=== PATIENT | female | born 1990 | race African-American/Black ===

== ENCOUNTER 2017-10-30 17:26 | Emergency (ER) | payer SELFPAY ==
[2017-10-30 17:36] VITALS: BP 111/69
--- NOTE | 2017-10-30 17:55 | ER Document Report ---
ED Extremity Problem, Lower - General Chief Complaint: Leg Swelling Stated Complaint: POSSIBLE INSECT BITE Time Seen by Provider: 10/30/17 17:49 Mode of Arrival: Ambulatory Information source: Patient Notes: 27-year-old female presented ED for complaint of pain and swelling to the right thigh. She states she was bit by an insect 2 days ago and she pinched the insect bite and got some clear fluid out of it. She states then later on she pensioned again and got some pus out of it. She states 1 of her friends told her she keeps squeezing at the lid plan so she squeezed it and squeezed it until it bled. Now it is inflamed red and infected. TRAVEL OUTSIDE OF THE [place] IN LAST 30 DAYS: No - HPI Patient complains to provider of: Pain, Swelling, Other - Abscess at site of previous insect bite Location: Thigh - Right thigh Occurred: Other - Saturday Where: Outdoors Onset/Duration: Gradual, Worse Quality of pain: Burning Severity: Moderate Pain Level: 3 Context: Other - Red swollen painful area to right thigh at site of insect bite Recent injury: No Associated symptoms: Other - Red swollen painful area at site of insect bite Exacerbated by: Movement, Walking Relieved by: Nothing - Related Data Allergies/Adverse Reactions: No Known Allergies Allergy (Unverified 10/30/17 17:31) Past Medical History - General Information source: Patient - Social History Smoking Status: Never Smoker Cigarette use (# per day): No Chew tobacco use (# tins/day): No Smoking Education Provided: No Frequency of alcohol use: None Drug Abuse: None Lives with: Family Family History: Reviewed & Not Pertinent Patient has suicidal ideation: No Patient has homicidal ideation: No - Past Medical History Cardiac Medical History: Reports: None Pulmonary Medical History: Reports: None EENT Medical History: Reports: None Neurological Medical History: Reports: None Endocrine Medical History: Reports: None Renal/ Medical History: Reports: None Malignancy Medical History: Reports: None GI Medical History: Reports: None Musculoskeletal Medical History: Reports None Skin Medical History: Reports None Psychiatric Medical History: Reports: None Traumatic Medical History: Reports: None Infectious Medical History: Reports: None Surgical Hx: Negative Past Surgical History: Reports: None - Immunizations Immunizations up to date: Yes Review of Systems - Review of Systems Constitutional: No symptoms reported EENT: No symptoms reported Cardiovascular: No symptoms reported Respiratory: No symptoms reported Gastrointestinal: No symptoms reported Genitourinary: No symptoms reported Female Genitourinary: No symptoms reported Musculoskeletal: No symptoms reported Skin: Other - Red swollen painful area to right thigh Hematologic/Lymphatic: No symptoms reported Neurological/Psychological: No symptoms reported -: Yes All other systems reviewed and negative Physical Exam - Vital signs Vitals: Temp Pulse Resp BP Pulse Ox 98.3 F 82 18 111/69 97 10/30/17 17:35 10/30/17 17:35 10/30/17 17:35 10/30/17 17:35 10/30/17 17:35 Interpretation: Normal - General General appearance: Appears well, Alert - HEENT Head: Normocephalic, Atraumatic Eyes: Normal Pupils: PERRL - Respiratory Respiratory status: No respiratory distress Chest status: Nontender Breath sounds: Normal Chest palpation: Normal - Cardiovascular Rhythm: Regular Heart sounds: Normal auscultation Murmur: No - Abdominal Inspection: Normal Distension: No distension Bowel sounds: Normal Tenderness: Nontender Organomegaly: No organomegaly - Back Back: Normal, Nontender - Extremities General upper extremity: Normal inspection, Nontender, Normal color, Normal ROM , Normal temperature General lower extremity: Normal inspection, Nontender, Normal color, Normal ROM , Normal temperature, Normal weight bearing. No: Yen's sign - Neurological Neuro grossly intact: Yes Cognition: Normal Orientation: AAOx4 Alisha Coma Scale Eye Opening: Spontaneous [place] Coma Scale Verbal: Oriented [place] Coma Scale Motor: Obeys Commands [place] Coma Scale Total: 15 Speech: Normal Motor strength normal: LUE, RUE, LLE, RLE Sensory: Normal - Psychological Associated symptoms: Normal affect, Normal mood - Skin Skin Temperature: Warm Skin Moisture: Dry Skin Color: Normal Skin irregularity: Abscess Location of irregularity: Extremities - Right thigh Character of irregularity: Erythematous Irregularity with: Swelling, Tenderness, Warmth Course - Re-evaluation Re-evalutation: 10/30/17 18:05 I&D was completed with Betadine and an 18-gauge needle. Wound culture was sent and patient was started on Keflex and Bactrim. Patient was given instructions on Epson salt to the area. Patient to return to the ED if the redness and swelling goes outside of the area marked or if she has increase in pain swelling or redness. - Vital Signs Vital signs: Temp Pulse Resp BP Pulse Ox 98.3 F 82 18 111/69 97 10/30/17 17:35 10/30/17 17:35 10/30/17 17:35 10/30/17 17:35 10/30/17 17:35 Procedures - Incision and Drainage Right Thigh Time completed: 18:06 Type: Simple Anesthetic type: Other - None mL's of anesthetic: 0 Blade size: Other - 18-gauge needle I&D procedure: Betadine prep applied, Sterile dressing applied Incision Method: Incision made with needle Amount/type of drainage: Small amount purulent drainage Discharge - Discharge Clinical Impression: Abscess of right thigh Condition: Stable Disposition: HOME, SELF-CARE Instructions: Family Physicians / Practices, Use of [id number] Ibuprofen ([facility]) Additional Instructions: ABSCESS: You have an abscess (boil). This a pus-forming infection, usually due to staph. Some boils may be left to drain on their own, but most require lancing. From the time the tender lump first appears, it may be three or four days before the abscess is ready to bhargavi. Local heat and rest help at this stage of treatment. An antibiotic may prevent spread of the infection. Once the abscess is opened, packing may be placed into it. This is done so pus is not sealed inside by premature closure of the cavity. The packing will be removed at your follow-up visit or you may be advised to remove it yourself at home. Sometimes this packing must be replaced a few times during healing. The wound will heal with surprisingly little scar. Depending on the size and location of an abscess, healing can take one to four weeks. You may shower and wash the area around the incision site two or three times a day. Antibiotics may be prescribed, but are usually not necessary after an abscess has been drained. If you develop fever, chills, worsening pain, or increasing swelling in the area, call the doctor or return immediately. CEPHALEXIN: The antibiotic you've been prescribed is a member of the cephalosporin class. This type of antibiotic covers a wide variety of infections, including those of the skin, lungs, and urinary tract. It's useful for staph infections. This antibiotic is slightly similar to the penicillin family. In rare cases , a person who is allergic to penicillin will also be allergic to this medication. If you have had a severe allergic reaction to penicillin, and have not taken this antibiotic since that time, notify your doctor. Antibiotics which cover many germs ("broad spectrum" antibiotics) are more likely to cause diarrhea or "yeast" infections. Women prone to vaginal yeast problems may suffer an attack after taking this antibiotic. In infants, oral thrush (white spots "stuck" on the cheek) or yeast diaper rash may result. See your doctor if these problems occur. Call at once if you develop itching, hives , shortness of breath, or lightheadedness. TRIMETHOPRIM-SULFA: You have been given a prescription for trimethoprim-sulfa (TMS, Septra, Bactrim). This is a combination antibiotic of the sulfa class, often used for urinary tract infections, middle ear infections, bronchitis, shigella intestinal infection, and Pneumocystis pneumonia. TMS is usually well-tolerated. Occasional side effects include nausea and decreased appetite. Septra is not recommended for infants less than two months of age. Do not take this medication if you have experienced severe side effects or allergy to sulfa medicine. You should stop this medicine at once and contact your physician if you develop any rash, joint pain, shortness of breath, bruising, or jaundice ( yellow color in the skin), or if you develop any other new or unusual symptoms. Epsom Salt Soaks Soak the wound area in a container of warm epsom salt water. If you can't get the wound area into a bucket or diop, use a folded towel soaked in the epsom salt solution and apply to the area. Use clean hot tap water (about the temperature of a very warm bath), mixing in about one (1) teaspoon for every pint of water. Two gallon --> 16 teaspoons Epsom Salts One gallon --> 8 teaspoons Epsom Salts Two quarts --> 4 teaspoons Epsom Salts One quart --> 2 teaspoons Epsom Salts Soak the wound for about 20 minutes while gently moving it around in the water. Repeat this four (4) times a day. FOLLOW-UP CARE: Most simple abscesses will not require a follow up visit. If you had packing placed in the abscess, remove it as instructed by the physician. If you have been referred to a physician for follow-up care, call the physicians office for an appointment as you were instructed or within the next two days. If you experience worsening or a significant change in your symptoms, return to the Emergency Department at any time for re-evaluation. Prescriptions: Cephalexin Monohydrate [Keflex 500 mg Capsule] 500 mg PO QID #20 capsule Sulfamethoxazole/Trimethoprim [Septra-Ds 800-160 mg Tablet] 1 tab PO BID #20 tablet
== END 2017-10-30 18:10 | disposition home or self-care (01) ==
LOC: ER 17:26
DX: S70.361A Insect bite (nonvenomous), right thigh, initial encounter (principal); L02.415 Cutaneous abscess of right lower limb; W57.XXXA Bitten or stung by nonvenomous insect and other nonvenomous arthropods, initial encounter
CPT/HCPCS: 87070; 87075; 87077; 87186; 87205; 99283

== ENCOUNTER 2018-12-08 23:28 | Outpatient (CLI) | payer MEDICAID ==
[2018-12-09 00:29] LABS: ABSOLUTE EOSINOPHILS # (AUTO) 0.3 10^3/uL (0.0-0.6); ABSOLUTE MONOCYTES (AUTO) 0.6 10^3/uL (0.1-1.4); ABSOLUTE NEUT (AUTO) 6.6 10^3/uL (1.7-8.2); BASOPHILS % (AUTO) 0.4 % (0-2); EOSINOPHILS % (AUTO) 3.4 % (0-6); HEMATOCRIT 29.5 % (36.0-47.0); MEAN CORPUSCULAR HGB CONC 33.9 g/dL (32.0-36.0); MEAN CORPUSCULAR VOLUME 82 fl (80-97); MONOCYTES % (AUTO) 6.4 % (3-13); PLATELET COUNT 336 10^3/uL (150-450); RED BLOOD COUNT 3.58 10^6/uL (3.72-5.28); RED CELL DISTRIBUTION WIDTH 12.4 % (11.5-14.0); SEGMENTED NEUTROPHILS % (AUTO) 68.8 % (42-78); TOTAL CELLS COUNTED % (AUTO) 100 %; WHITE BLOOD COUNT 9.6 10^3/uL (4.0-10.5)
[2018-12-09 00:35] LABS: ALBUMIN 3.5 g/dL (3.5-5.0); ALKALINE PHOSPHATASE 125 U/L (38-126); ANION GAP 10 (5-19); ASPARTATE AMINO TRANSFERASE 17 U/L (14-36); BILIRUBIN,DIRECT 0.1 mg/dL (0.0-0.4); BILIRUBIN,TOTAL 0.2 mg/dL (0.2-1.3); BLOOD UREA NITROGEN 6 mg/dL (7-20); CALCIUM 9.2 mg/dL (8.4-10.2); CARBON DIOXIDE 23 mmol/L (22-30); CHLORIDE 101 mmol/L (98-107); GLUCOSE 84 mg/dL (75-110); POTASSIUM 3.9 mmol/L (3.6-5.0); TOTAL PROTEIN 6.6 g/dL (6.3-8.2); URIC ACID 3.3 mg/dL (2.5-6.2)
[2018-12-09 00:47] LABS: APPEARANCE,URINE CLEAR; BILIRUBIN,URINE NEGATIVE (NEGATIVE); COLOR,URINE YELLOW; GLUCOSE, URINE NEGATIVE (NEGATIVE); KETONES,URINE NEGATIVE (NEGATIVE); LEUKOCYTE ESTERASE,URINE TRACE (NEGATIVE); NITRITE,URINE NEGATIVE (NEGATIVE); PROTEIN,URINE 30 mg/dL (NEGATIVE); URINE SPECIFIC GRAVITY 1.015; UROBILINOGEN,URINE NEGATIVE mg/dL (<2.0)
[2018-12-09 00:52] LABS: URINE AMPHETAMINES SCREEN NEGATIVE; URINE BARBITURATES SCREEN NEGATIVE; URINE BENZODIAZEPINES SCREEN NEGATIVE; URINE COCAINE SCREEN NEGATIVE; URINE MARIJUANA (THC) SCREEN NEGATIVE; URINE METHADONE SCREEN NEGATIVE; URINE PHENCYCLIDINE SCREEN NEGATIVE
[2018-12-09 01:06] LABS: UR PRO/CREAT RATIO RESULT 0.1 mg/mg (0.0-0.2); URINE CREATININE 123.4 mg/dL (16-327); URINE PROTEIN 8.9 mg/dL (<12)
[2018-12-10 10:36] LABS: HEPATITIS C VIRUS AB <0.1 s/co ratio (0.0-0.9)
[2018-12-10 12:52] LABS: HEPATITS B SURFACE ANTIGEN Negative (Negative)
== END 2018-12-09 01:20 | disposition home or self-care (01) ==
LOC: LC 23:28
PROVIDERS: ATTEND Obstetrics & Gynecology
PROC: 4A1HXCZ Monitoring of Products of Conception, Cardiac Rate, External Approach (ICD-10-PCS; principal; 2018-12-08)
DX: O47.02 False labor before 37 completed weeks of gestation, second trimester (principal); O99.282 Endocrine, nutritional and metabolic diseases complicating pregnancy, second trimester; E86.0 Dehydration; Z3A.27 27 weeks gestation of pregnancy
CPT/HCPCS: 36415; 80053; 80307; 81001; 82570; 83615; 84156; 84550; 85025; 86592; 86701; 86762; 86803; 86804; 86850; 86900; 86901; 87340

== ENCOUNTER 2019-03-09 18:45 | Inpatient (IN) | payer MEDICAID ==
[2019-03-09 19:15] LABS: APPEARANCE,URINE SLIGHTLY-CLOUDY; BILIRUBIN,URINE NEGATIVE (NEGATIVE); COLOR,URINE YELLOW; GLUCOSE, URINE NEGATIVE (NEGATIVE); KETONES,URINE NEGATIVE (NEGATIVE); LEUKOCYTE ESTERASE,URINE SMALL (NEGATIVE); NITRITE,URINE NEGATIVE (NEGATIVE); PROTEIN,URINE 30 mg/dL (NEGATIVE); URINE SPECIFIC GRAVITY 1.018
[2019-03-09 19:33] LABS: URINE AMPHETAMINES SCREEN NEGATIVE; URINE BARBITURATES SCREEN NEGATIVE; URINE BENZODIAZEPINES SCREEN NEGATIVE; URINE COCAINE SCREEN NEGATIVE; URINE MARIJUANA (THC) SCREEN NEGATIVE; URINE METHADONE SCREEN NEGATIVE; URINE PHENCYCLIDINE SCREEN NEGATIVE
[2019-03-09] MEDS ORDERED: RINGERS SOLUTION,LACTATED 1,000 ML IV ONE (19:52)
[2019-03-09] MEDS ORDERED: RINGERS SOLUTION,LACTATED 1,000 ML IV PRN (19:52)
[2019-03-09 20:29] LABS: ABSOLUTE EOSINOPHILS # (AUTO) 0.1 10^3/uL (0.0-0.6); ABSOLUTE MONOCYTES (AUTO) 0.6 10^3/uL (0.1-1.4); ABSOLUTE NEUT (AUTO) 6.5 10^3/uL (1.7-8.2); BASOPHILS % (AUTO) 0.4 % (0-2); EOSINOPHILS % (AUTO) 1.6 % (0-6); HEMATOCRIT 29.9 % (36.0-47.0); HEMOGLOBIN 9.7 g/dL (12.0-15.5); LYMPHOCYTES % (AUTO) 21.1 % (13-45); MEAN CORPUSCULAR HEMOGLOBIN 25.5 pg (27.0-33.4); MEAN CORPUSCULAR HGB CONC 32.6 g/dL (32.0-36.0); MEAN CORPUSCULAR VOLUME 78 fl (80-97); MONOCYTES % (AUTO) 6.8 % (3-13); PLATELET COUNT 312 10^3/uL (150-450); RED BLOOD COUNT 3.81 10^6/uL (3.72-5.28); RED CELL DISTRIBUTION WIDTH 14.5 % (11.5-14.0); SEGMENTED NEUTROPHILS % (AUTO) 70.1 % (42-78); TOTAL CELLS COUNTED % (AUTO) 100 %; WHITE BLOOD COUNT 9.3 10^3/uL (4.0-10.5)
[2019-03-09] MEDS ORDERED: LIDOCAINE 1% INJ-PF (10 MG/ML) 30 ML SDV ONE (20:33)
[2019-03-09] MEDS ORDERED: OXYTOCIN/NORMAL SALINE 20 UNIT/1,000 ML RTUINJ ONE (20:33)
[2019-03-09] MEDS ORDERED: OXYTOCIN 10 UNIT/ML VIAL ONE (20:33)
[2019-03-09] MEDS ORDERED: MISOPROSTOL 0.2 MG TABLET ONE (20:33)
[2019-03-09] MEDS ORDERED: OXYTOCIN/NORMAL SALINE 20 UNIT/1,000 ML RTUINJ IV PRN (23:59)
--- NOTE | 2019-03-10 02:15 | Admission Physical ---
Datetime Report Generated by CPN: 03/10/2019 02:14 CURRENT ADMISSION Chief Complaint: Suspected Ruptured Membranes Indication for Induction: Not Applicable Admit Impression : Term, Intrauterine Admit Plan: Admit to Unit; Initiate Labor Protocol ALLERGIES Medication Allergies: No Medication Allergies: No Known Allergies (03/09/2019) Latex: No Latex Allergies OBSTETRICAL HISTORY EDC: 03/09/2019 00:00 : 3 Para: 2 Term: 2 : 2 SAB: 0 IAB: 0 Ectopic: 0 Livin Cesareans: 0 VBACs: 0 Multiple Births: 0 Gestational Diabetes: No Rh Sensitization: No Incompetent Cervix: No CONNIE: No Infertility: No ART Treatment: No Uterine Anomaly: No IUGR: No Hx Previous C/S: No Macrosomia: No Hx Loss/Stillborn: No PIH: No Hx : No Placenta Previa/Abruption: No Depression/PP Depression: No PTL/PROM: No Post Hemorrhage: No Current Procedures: Ultrasound Obstetrical History Comments: G1 - 02/11/2007-Full Term vaginal G2 - 02/10/2010, term, vaginal G3 - current SEE RECORDS Alcohol: No Marijuana : No Cocaine: No Other Illicit Drugs: No Cigarettes: Never Smoker. [id number] MEDICAL HISTORY Diabetes: No Blood Transfusion: No Pulmonary Disease (Asthma, TB): No Breast Disease: No Hypertension: No Home Health Care Provider Surgery: No Heart Disease: No Hosp/Surgery: Yes Autoimmune Disorder: No Anesthetic Complications: No Kidney Disease: No Abnormal Pap Smear: No Neuro/Epilepsy: No Psychiatric Disorders: No Other Medical Diseases: No Hepatitis/Liver Disease: No Significant Family History: No Varicosities/Phlebitis: No Trauma/Violence : No Thyroid Dysfunction: Yes Medical History Comments: anemia, depression INFECTIOUS HISTORY Gonorrhea: No Genital Herpes: No Chlamydia: No Tuberculosis: No Syphilis: No Hepatitis: No HIV/AIDS Exposure: No Rash or Viral Illness: No HPV: No PHYSICAL EXAM General: Normal HEENT: Normal Neurologic: Normal Thyroid: Normal Heart: Normal Lungs: Normal Breast: Deferred Back: Normal Abdomen: Normal Genitourinary Exam: Normal Extremities: Normal DTRs: Normal Pelvic Type: Adequate FETUS A EGA: 40.1 Monitoring: External US PLANS FOR LABOR AND DELIVERY Feeding Preference: Both Benefit of Breast Feed Discussed: Yes Circumcision: N/A INFORMED CONSENT Signature: with User ID: [email or web address]
[2019-03-10] MEDS ORDERED: ZOLPIDEM TARTRATE 5 MG TABLET PO PRN (07:43)
[2019-03-10] MEDS ORDERED: PROMETHAZINE HCL INJ 25 MG/1 ML VIAL IV PRN (07:43)
[2019-03-10] MEDS ORDERED: BENZOCAINE/MENTHOL AEROSOL SPRAY 56 ML TOP PRN (07:43)
[2019-03-10] MEDS ORDERED: ACETAMINOPHEN WITH CODEINE #3 TABLET PO PRN (07:43)
[2019-03-10] MEDS ORDERED: PSEUDOEPHEDRINE HCL 30 MG TABLET PO PRN (07:43)
[2019-03-10] MEDS ORDERED: ACETAMINOPHEN 650 MG SUPP.RECT PR PRN (07:43)
[2019-03-10] MEDS ORDERED: DIPHENHYDRAMINE HCL 25 MG CAPSULE PO PRN (07:43)
[2019-03-10] MEDS ORDERED: GLYCERIN/WITCH HAZEL LEAF 1 EACH MED..WIPE TP PRN (07:43)
[2019-03-10] MEDS ORDERED: MAGNESIUM HYDROXIDE SUSP 30 ML UDCUP PO PRN (07:43)
[2019-03-10] MEDS ORDERED: NA PHOS,M-B/NA PHOS,DI-BA (ADULT) 133 ML ENEMA PR PRN (07:43)
[2019-03-10] MEDS ORDERED: MEASLES,MUMPS&RUBELLA VACC/PF 0.5 ML VIAL SUBCUT PRN (07:43)
[2019-03-10] MEDS ORDERED: OXYTOCIN/NORMAL SALINE 20 UNIT/1,000 ML RTUINJ IV PRN (07:43)
[2019-03-10] MEDS ORDERED: PROMETHAZINE HCL 25 MG TABLET PO PRN (07:43)
[2019-03-10] MEDS ORDERED: DIPH/PERTUSS(ACELL)/TETANUS VAC/PF 0.5 ML SYR (>=10YO) IM PRN (07:43)
[2019-03-10] MEDS ORDERED: DIBUCAINE 1% OINTMENT 56 GM TP PRN (07:43)
[2019-03-10] MEDS ORDERED: PROMETHAZINE HCL 25 MG SUPP.RECT PR PRN (07:43)
--- NOTE | 2019-03-10 09:22 | Warning Signs in Babies ---
VOD Warning Signs Datetime Report Generated by [facility]: 03/10/2019 09:22 VOD#608 -Warning Signs in Babies: Viewed with Parent(s)/Family (12/08/2018 23:35:Danyel Tovar RN)
--- NOTE | 2019-03-10 09:23 | Warning Signs in Babies ---
VOD Warning Signs Datetime Report Generated by [facility]: 03/10/2019 09:23 VOD#608 -Warning Signs in Babies: Viewed with Parent(s)/Family (03/10/2019 09:22:Danyel Tovar RN)
[2019-03-10] MEDS ORDERED: PRENATAL VITAMIN W DHA CAPSULE PO ONE (10:29)
[2019-03-10] MEDS ORDERED: DOCUSATE SODIUM 100 MG CAPSULE ONE (10:30)
[2019-03-10] MEDS ORDERED: FERROUS SULFATE 325 MG TABLET PO ONE (10:30)
[2019-03-10] MEDS ORDERED: SENNOSIDES/DOCUSATE 8.6-50 MG 1 EACH TABLET ONE (10:30)
[2019-03-10] MEDS ORDERED: FAMOTIDINE 20 MG TABLET ONE (10:30)
[2019-03-10] MEDS: FAMOTIDINE 20 MG TABLET PO SCH ×2 (10:33→22:51)
[2019-03-10] MEDS: SENNOSIDES/DOCUSATE 8.6-50 MG 1 EACH TABLET PO SCH (10:34)
[2019-03-10] MEDS: PRENATAL VITAMIN W DHA CAPSULE PO SCH (10:34)
[2019-03-10] MEDS: DOCUSATE SODIUM 100 MG CAPSULE PO SCH ×2 (10:34→19:38)
[2019-03-10] MEDS: FERROUS SULFATE 325 MG TABLET PO SCH ×2 (10:34→19:38)
--- NOTE | 2019-03-10 13:19 | Delivery Summary ---
Del Sum A-C Datetime Report Generated by CPN: 03/10/2019 13:19 DELIVERY PERSONNEL DELIVERY PERSONNEL: [id number] Delivery Doctor:: Mike Gonzalez MD Labor and Delivery Nurse:: Danyel Tovar RNtelephone order clerk room service Nurse:: Armida Ludwig RN Nursery Nurse:: Regla Renae RN National Dedicated Truck Driver/AIR TOOL OPERATOR: [facility] Additional Personnel: : Lupe Maddox RN MATERNAL INFORMATION Delivery Anesthesia: None Medications After Delivery: Pitocin Bolus-Please Comment Meds After Delivery Comment: pitocin 20 units in 1 L NS bolusing per order Delivery QBL: 350 Maternal Complications: None LABOR SUMMARY EDC: 03/09/2019 00:00 No. Babies in Womb: 1 Attempted: No Labor Anesthesia: None LABOR INFORMATION Reason for Induction: Not Applicable Onset of Labor: 03/10/2019 07:00 Complete Dilatation: 03/10/2019 07:28 Oxytocin: Augmentation Group B Beta Strep: Negative Antibiotics # of Doses: 0 Steroids Given: None Reason Steroids Not Administered: Not Applicable MEMBRANES Membranes Rupture Method: Spontaneous Rupture of Membranes: 03/09/2019 18:30 Length of Rupture (hr): 13.02 Amniotic Fluid Color: Clear Amniotic Fluid Amount: Moderate Amniotic Fluid Odor: Normal STAGES OF LABOR Stage 1 hr: 0 Stage 1 min: 28 Stage 2 hr: 0 Stage 2 min: 3 Stage 3 hr: 0 Stage 3 min: 4 Total Time in Labor hr: 0 Total Time in Labor min: 35 VAGINAL DELIVERY Episiotomy: None Laceration #1: None Laceration Extension #1: N/A Laceration Repair: Not Applicable Sponge Count Correct: N/A Sharps Count Correct: N/A CSECTION DELIVERY Primary Indication: N/A Secondary Indication: N/A CSection Incidence: N/A Labor: N/A Elective: N/A CSection Incision: N/A BABY A INFORMATION Delivery Date/Time: 03/10/2019 07:31 Method of Delivery: Vaginal Born in Route : No : N/A Forceps: N/A Vacuum Extraction: N/A Shoulder Dystocia : No PRESENTATION/POSITION BABY A Presentation: Cephalic Cephalic Presentation: Vertex Vertex Position: Left Occipital Anterior Breech Presentation: N/A PLACENTA INFORMATION BABY A Placenta Delivery Time : 03/10/2019 07:35 Placenta Method of Delivery: Spontaneous Placenta Status: Delivered SCORES BABY A Heart Rate 1 min: >100 bpm Resp Effort 1 min: Good Cry Reflex Irritability 1 min: Cough or Sneeze or Pulls Away Muscle Tone 1 min: Active Motion Color 1 min: Blue/Pale Resuscitation Effort 1 min: Tactile Stimulation SCORE 1 MIN: 8 Heart Rate 5 min: >100 bpm Resp Effort 5 min: Good Cry Reflex Irritability 5 min: Cough or Sneeze or Pulls Away Muscle Tone 5 min: Active Motion Color 5 min: Body [place], Extremities Blue Resuscitation Effort 5 min: Tactile Stimulation SCORE 5 MIN: 9 INFORMATION BABY A Gestational Age at Delivery: 40.1 Gestational Status: Full Term- 39- 40.6 Weeks Outcome : Liveborn Infant Condition : Stable Sex: Female IDENTIFICATION BABY A Verification Date/Time: 03/10/2019 10:43 ID Band Number: [id number] Mother's Name Verified: Yes RN Verifying : TMartin,RN Additional Verifying Personnel: byyd,US WEIGHT/LENGTH BABY A Infant Birthweight (gm): 3140 Weight (lb): 6 Infant Weight (oz): 15 Length (in): 19.50 Length (cm): 49.53 CORD INFORMATION BABY A No. Cord Vessels: 3 Nuchal Cord : Around Neck x1, Loose True Knot: 1 Cord Blood Taken: Yes-For Eval (Mom's Blood Type - or O+) Infant Suction: None ASSESSMENT BABY A Complications: None Physical Findings at Delivery: Within Normal Limits Skin to Skin: Yes Skin to Skin Time (min): 60 Infant Care By: Marcos Renae RN Transferred To: Remains with Mother BABY B INFORMATION : N/A SIGNATURES Signature: with User ID: [email or web address]
[2019-03-10] MEDS: IBUPROFEN 800 MG TABLET PO SCH ×2 (14:53→22:51)
[2019-03-11] MEDS: IBUPROFEN 800 MG TABLET PO SCH ×3 (05:20→21:21)
[2019-03-11] MEDS: LEVOTHYROXINE SODIUM 0.075 MG TABLET PO SCH (06:59)
[2019-03-11 07:46] LABS: HEMATOCRIT 26.2 % (36.0-47.0); HEMOGLOBIN 8.4 g/dL (12.0-15.5); MEAN CORPUSCULAR HEMOGLOBIN 25.3 pg (27.0-33.4); MEAN CORPUSCULAR VOLUME 79 fl (80-97); PLATELET COUNT 284 10^3/uL (150-450); RED BLOOD COUNT 3.32 10^6/uL (3.72-5.28); RED CELL DISTRIBUTION WIDTH 15.1 % (11.5-14.0); WHITE BLOOD COUNT 12.5 10^3/uL (4.0-10.5)
[2019-03-11] MEDS: SENNOSIDES/DOCUSATE 8.6-50 MG 1 EACH TABLET PO SCH (09:58)
[2019-03-11] MEDS: FERROUS SULFATE 325 MG TABLET PO SCH ×2 (09:58→17:38)
[2019-03-11] MEDS: FAMOTIDINE 20 MG TABLET PO SCH ×2 (09:58→21:20)
[2019-03-11] MEDS: PRENATAL VITAMIN W DHA CAPSULE PO SCH (09:58)
[2019-03-11] MEDS: DOCUSATE SODIUM 100 MG CAPSULE PO SCH ×2 (09:58→17:37)
--- NOTE | 2019-03-11 13:01 | PDOC PROGRESS REPORT ---
Subjective-OB Progress Note for:: 03/11/19 Subjective: 29yo G3 now P3 s/p ppd1. Ambulating and voiding without difficulty. Reports pain is well controlled with medication, no concerns today Physical Exam (OB) Vital Signs: Temp Pulse Resp BP Pulse Ox 97.7 F 60 16 100/57 L 100 03/11/19 07:56 03/11/19 07:56 03/11/19 07:56 03/11/19 07:56 03/11/19 07:56 Intake & Output 03/10/19 03/11/19 03/12/19 06:59 06:59 06:59 Weight 83.6 kg - General General Appearance: Appears well In distress: None - PIH/Pre-Eclampsia Clonus: Negative Headache: Absent Epigastric Pain: No Visual Changes: No - Episiotomy/Laceration Site Condition: N/A - Lochia Lochia Amount: Small 10-25 ml Lochia Color: Rubra/Red - Abdomen Description: Soft Hernia Present: No Fundal Description: Firm, Midline Fundal Height: u/u - u/2 - Respiratory Respiratory Status: No respiratory distress Chest Status: Nontender - Extremities Upper extremity: Normal inspection Lower extremities: Normal inspection - Neurological Cognition: Normal Orientation: AAOx4 - Psychological Associated symptoms: Flat affect Objective-Diagnostic Laboratory: 03/11/19 07:21 03/11/19 07:21 WBC 12.5 H RBC 3.32 L Hgb 8.4 L Hct 26.2 L MCV 79 L MCH 25.3 L MCHC 32.0 RDW 15.1 H Plt Count 284 Assessment and Plan(PN) - Assessment and Plan (1) Anemia complicating , third trimester Is this a current diagnosis for this admission?: Yes Plan: increase dietary iron and FeSO4 BID (2) Delivery normal Is this a current diagnosis for this admission?: Yes Plan: routine pp care - Time Spent with Patient Time with patient: Less than 15 minutes Medications reviewed and adjusted accordingly: Yes - Disposition Anticipated Discharge: Home Within: within 24 hours
[2019-03-12] MEDS: IBUPROFEN 800 MG TABLET PO SCH (05:54)
[2019-03-12] MEDS: LEVOTHYROXINE SODIUM 0.075 MG TABLET PO SCH (05:54)
--- NOTE | 2019-03-12 09:33 | PDOC PROGRESS REPORT ---
Subjective-OB Progress Note for:: 03/12/19 Subjective: Doing well, no c/o, breast/bottle feeding, voiding, ambulating Physical Exam (OB) Vital Signs: Temp Pulse Resp BP Pulse Ox 98.0 F 57 L 18 121/68 100 03/12/19 07:15 03/12/19 07:15 03/12/19 07:15 03/12/19 07:15 03/12/19 07:15 - PIH/Pre-Eclampsia DTR's: 1 + Clonus: Negative Headache: Absent Epigastric Pain: No Visual Changes: No - Lochia Lochia Amount: Scant < 10 ml Lochia Color: Rubra/Red - Abdomen Description: Soft, Round Hernia Present: No Fundal Description: Firm, Midline Fundal Height: u/u - u/2 Objective-Diagnostic Laboratory: 03/11/19 07:21 Assessment and Plan(PN) - Assessment and Plan (1) Delivery normal Is this a current diagnosis for this admission?: Yes (2) Anemia complicating , third trimester Is this a current diagnosis for this admission?: Yes - Time Spent with Patient Time with patient: Less than 15 minutes Medications reviewed and adjusted accordingly: Yes - Disposition Anticipated Discharge: Home Within: within 24 hours
--- NOTE | 2019-03-12 09:37 | PDOC DISCHARGE SUMMARY ---
Impression - Admit/DC Date/PCP Admission Date/Primary Care Provider: 03/09/19 19:55 Discharge Date: 03/12/19 - Discharge Diagnosis (1) Delivery normal Is this a current diagnosis for this admission?: Yes (2) Anemia complicating , third trimester Is this a current diagnosis for this admission?: Yes - Additional Information Resuscitation Status: Full Code Discharge Diet: As Tolerated, Regular Discharge Activity: No Lifting Over 10 Pounds, No Lifting/Push/Pulling, Pelvic Rest Referrals: HIMA CASTRO MD [ACTIVE STAFF] - (wha 4 weeks) Home Medications: Vit,Calc76/Iron/Folic [Pnv 29-1 Tablet] 1 tab PO DAILY 12/09/18 Levothyroxine Sodium [Synthroid 0.075 mg Tablet] 75 mcg PO DAILY 03/09/19 Ferrous Sulfate [Feosol 325 mg Tablet] 325 mg PO BID tablet 03/12/19 Levothyroxine Sodium [Synthroid 0.075 mg Tablet] 0.075 mg PO Q6AM tablet 03/12/19 HPI Gestational Age: 40.1 Reason(s) for Admission: Onset of Labor, PROM Admission Note: SROM, augmentation Intrapartum Procedure(s): Spontaneous Vaginal Delivery Hospital Course Hospital Course: routine Results Laboratory Results: WBC 12.5 10^3/uL (4.0-10.5) H 03/11/19 07:21 RBC 3.32 10^6/uL (3.72-5.28) L 03/11/19 07:21 Hgb 8.4 g/dL (12.0-15.5) L 03/11/19 07:21 Hct 26.2 % (36.0-47.0) L 03/11/19 07:21 MCV 79 fl (80-97) L 03/11/19 07:21 MCH 25.3 pg (27.0-33.4) L 03/11/19 07:21 MCHC 32.0 g/dL (32.0-36.0) 03/11/19 07:21 RDW 15.1 % (11.5-14.0) H 03/11/19 07:21 Plt Count 284 10^3/uL (150-450) 03/11/19 07:21 Lymph % (Auto) 21.1 % (13-45) 03/09/19 20:01 Day % (Auto) 6.8 % (3-13) 03/09/19 20:01 Eos % (Auto) 1.6 % (0-6) 03/09/19 20:01 Baso % (Auto) 0.4 % (0-2) 03/09/19 20:01 Absolute Neuts (auto) 6.5 10^3/uL (1.7-8.2) 03/09/19 20:01 Absolute Lymphs (auto) 2.0 10^3/uL (0.5-4.7) 03/09/19 20:01 Absolute Monos (auto) 0.6 10^3/uL (0.1-1.4) 03/09/19 20:01 Absolute Eos (auto) 0.1 10^3/uL (0.0-0.6) 03/09/19 20:01 Absolute Basos (auto) 0.0 10^3/uL (0.0-0.2) 03/09/19 20:01 Seg Neutrophils % 70.1 % (42-78) 03/09/19 20:01 Urine Color YELLOW 03/09/19 19:00 Urine Appearance SLIGHTLY-CLOUDY 03/09/19 19:00 Urine pH 6.0 (5.0-9.0) 03/09/19 19:00 Ur Specific [place] 1.018 03/09/19 19:00 Urine Protein 30 mg/dL (NEGATIVE) H 03/09/19 19:00 Urine Glucose (UA) NEGATIVE mg/dL (NEGATIVE) 03/09/19 19:00 Urine Ketones NEGATIVE mg/dL (NEGATIVE) 03/09/19 19:00 Urine Blood MODERATE (NEGATIVE) H 03/09/19 19:00 Urine Nitrite NEGATIVE (NEGATIVE) 03/09/19 19:00 Urine Bilirubin NEGATIVE (NEGATIVE) 03/09/19 19:00 Urine Urobilinogen 2.0 mg/dL (<2.0) H 03/09/19 19:00 Ur Leukocyte Esterase SMALL (NEGATIVE) H 03/09/19 19:00 Urine Ascorbic Acid NEGATIVE (NEGATIVE) 03/09/19 19:00 Membranes Rupture POSITIVE (NEGATIVE) H 03/09/19 19:00 Urine Opiates Screen NEGATIVE 03/09/19 19:00 Urine Methadone Screen NEGATIVE 03/09/19 19:00 Ur Barbiturates Screen NEGATIVE 03/09/19 19:00 Ur Phencyclidine Scrn NEGATIVE 03/09/19 19:00 Ur Amphetamines Screen NEGATIVE 03/09/19 19:00 U Benzodiazepines Scrn NEGATIVE 03/09/19 19:00 Urine Cocaine Screen NEGATIVE 03/09/19 19:00 U Marijuana (THC) Screen NEGATIVE 03/09/19 19:00 RPR NONREACTIVE (NONREACTIVE) 03/09/19 20:01 Blood Type O POSITIVE 03/09/19 20:01 Antibody Screen NEGATIVE 03/09/19 20:01 Plan Health Concerns: anemia, hypothyroid Plan of Treatment: continue PNV, iron and synthroid Goals: no complications Time Spent: Less than 30 Minutes
[2019-03-12 10:01] VITALS: BP 115/70
[2019-03-12] MEDS: PRENATAL VITAMIN W DHA CAPSULE PO SCH (10:43)
[2019-03-12] MEDS: DOCUSATE SODIUM 100 MG CAPSULE PO SCH (10:43)
[2019-03-12] MEDS: FAMOTIDINE 20 MG TABLET PO SCH (10:43)
[2019-03-12] MEDS: SENNOSIDES/DOCUSATE 8.6-50 MG 1 EACH TABLET PO SCH (10:43)
[2019-03-12] MEDS: FERROUS SULFATE 325 MG TABLET PO SCH (10:43)
== END 2019-03-12 14:25 | disposition home or self-care (01) | DRG 807 ==
LOC: LC 18:45 → LR 19:55 → 2S 03-10 12:01
PROVIDERS: ADMIT Obstetrics & Gynecology Gynecology; ATTEND Obstetrics & Gynecology Gynecology
PROC: 10E0XZZ Delivery of Products of Conception, External Approach (ICD-10-PCS; principal; 2019-03-10)
DX: O99.02 Anemia complicating childbirth (principal); Z37.0 Single live birth; D64.9 Anemia, unspecified; O69.81X0 Labor and delivery complicated by cord around neck, without compression, not applicable or unspecified; O99.284 Endocrine, nutritional and metabolic diseases complicating childbirth; E03.9 Hypothyroidism, unspecified; O99.344 Other mental disorders complicating childbirth; F32.9 Major depressive disorder, single episode, unspecified; Z79.890 Hormone replacement therapy; Z3A.40 40 weeks gestation of pregnancy
CPT/HCPCS: 36415; 80307; 81005; 84112; 85025; 85027; 86592; 86850; 86900; 86901; 94760; J2590; J3490

== ENCOUNTER 2020-02-19 11:12 | Emergency (ER) | payer SELFPAY ==
--- NOTE | 2020-02-19 13:04 | ER Document Report ---
ED Medical Screen (RME) - General Chief Complaint: Eye Problem Stated Complaint: LEFT EYE IRRITATION Time Seen by Provider: 02/19/20 13:02 Mode of Arrival: Ambulatory Information source: Patient Notes: 30-year-old female presented to ED for complaint of a bump to the lateral side of her left eye. She states last night she used some eyedrops and some Claritin and went to bed and then this morning she woke up and the eye was shut with drainage and swollen. There is not any obvious drainage or swelling at this time but she states it does still feel strange. She states she put Visine in t his morning and it burned so she came to the emergency room. Will get visual acuity and I will have her examined by another provider. I have greeted and performed a rapid initial assessment of this patient. A comprehensive ED assessment and evaluation of the patient, analysis of test results and completion of medical decision making process will be conducted by an additional ED providers. TRAVEL OUTSIDE OF THE [place] IN LAST 30 DAYS: No - Related Data Allergies/Adverse Reactions: No Known Allergies Allergy (Verified 02/19/20 12:58) Past Medical History - Social History Chew tobacco use (# tins/day): No Frequency of alcohol use: Occasional Drug Abuse: None Renal/ Medical History: Denies: Hx Peritoneal Dialysis - Immunizations Immunizations up to date: Yes Physical Exam - Vital signs Vitals: Temp Pulse Resp BP Pulse Ox 97.4 F 64 16 107/63 100 02/19/20 11:29 02/19/20 11:29 02/19/20 11:29 02/19/20 11:29 02/19/20 11:29 Course - Vital Signs Vital signs: Temp Pulse Resp BP Pulse Ox 97.4 F 64 16 107/63 100 02/19/20 12:59 02/19/20 11:29 02/19/20 11:29 02/19/20 11:29 02/19/20 11:29
--- NOTE | 2020-02-19 18:21 | ER Document Report ---
ED General - General Chief Complaint: Eye Problem Stated Complaint: LEFT EYE IRRITATION Time Seen by Provider: 02/19/20 13:02 Mode of Arrival: Ambulatory Information source: Patient Notes: Patient presents to the ER for evaluation of left eye irritation that began yesterday. The patient states her eye began to itch and feel as though there was a foreign body. She states that she has been rubbing her eyelids since yesterday. She states that her eye feels dry and is at times blurred. She states that her left eyelids were matted shut upon waking this morning. She denies fever. She denies nausea or vomiting. She denies ongoing change in vision. Nursing notes reviewed and past medical, social, and family histories reviewed and validated. TRAVEL OUTSIDE OF THE [place] IN LAST 30 DAYS: No - Related Data Allergies/Adverse Reactions: No Known Allergies Allergy (Verified 02/19/20 12:58) Past Medical History - General Information source: Patient - Social History Smoking Status: Never Smoker Chew tobacco use (# tins/day): No Frequency of alcohol use: Occasional Drug Abuse: None Lives with: Family Family History: Reviewed & Not Pertinent Patient has suicidal ideation: No Patient has homicidal ideation: No - Past Medical History Cardiac Medical History: Reports: None Pulmonary Medical History: Reports: None EENT Medical History: Reports: None Neurological Medical History: Reports: None Endocrine Medical History: Reports: None Renal/ Medical History: Reports: None. Denies: Hx Peritoneal Dialysis Malignancy Medical History: Reports: None GI Medical History: Reports: None Musculoskeletal Medical History: Reports None Skin Medical History: Reports None Psychiatric Medical History: Reports: None Traumatic Medical History: Reports: None Infectious Medical History: Reports: None Past Surgical History: Reports: None - Immunizations Immunizations up to date: Yes Hx Diphtheria, Pertussis, Tetanus Vaccination: Yes Review of Systems - Review of Systems Notes: Constitutional: Negative for fever. HENT: Negative for sore throat. Eyes: Negative for visual changes. Left eye irritation. Cardiovascular: Negative for chest pain. Respiratory: Negative for shortness of breath. Gastrointestinal: Negative for abdominal pain, vomiting or diarrhea. Genitourinary: Negative for dysuria. Musculoskeletal: Negative for back pain. Skin: Negative for rash. Neurological: Negative for headaches, weakness or numbness. 10 point ROS negative except as marked above and in HPI. Physical Exam - Vital signs Vitals: Temp Pulse Resp BP Pulse Ox 97.4 F 64 16 107/63 100 02/19/20 11:29 02/19/20 11:29 02/19/20 11:29 02/19/20 11:29 02/19/20 11:29 - Notes Notes: CONSTITUTIONAL: Well appearing in no acute distress SKIN: Warm, dry, and intact without rash EYES: Extraocular movements are grossly intact, conjunctiva to the left eye is injected. Upon fluorescein exam, there is no corneal abrasion noted. Tetracaine did resolve symptoms. HENT: Normocephalic, atraumatic, moist mucus membranes NECK: No obvious swelling, normal range of motion PULMONARY: Normal chest rise and fall, no respiratory distress or stridor CARDIOVASCULAR: Regular rate, distal extremities are warm and well perfused NEUROLOGIC: Normal speech, moves all extremities MUSCULOSKELETAL: No gross deformities, atraumatic PSYCHIATRIC: Normal mood and affect - HEENT Visual acuity- Right eye: 20/50 Visual acuity- Left eye: 20/40 Visual acuity- Both eyes: 20/50 Corrective lenses worn: Yes Course - Re-evaluation Re-evalutation: 02/19/20 18:58 Rechecked patient who has responded well to treatment in the ER. Discussed with patient: results, diagnosis, treatment plan, and need for follow-up. The patient was advised to follow-up with an eye doctor in the next 2 to 3 days. She will return to the emergency room if she is unable to follow-up or if she has new or worsening symptoms. Return to the emergency department warnings were given. All questions and concerns were addressed. The plan is agreed with and understood. Patient is stable and ready for discharge. - Vital Signs Vital signs: Temp Pulse Resp BP Pulse Ox 97.4 F 65 16 127/74 H 99 02/19/20 12:59 02/19/20 18:32 02/19/20 18:32 02/19/20 18:32 02/19/20 18:32 Discharge - Discharge Clinical Impression: Acute conjunctivitis, left eye Qualifiers: Acute conjunctivitis type: bacterial Qualified Code(s): H10.32 - Unspecified acute conjunctivitis, left eye Condition: Good Disposition: HOME, SELF-CARE Instructions: Conjunctivitis ([facility]) Additional Instructions: It is important that you follow-up with an eye doctor over the next 2 to 3 days especially if your symptoms persist or worsen. Prescriptions: Tobramycin Sulfate [Tobrex 0.3% Oph Soln 5 ml] 100 drop OP 5XD #1 bottle Forms: Return to Work
[2020-02-19 18:34] VITALS: BP 127/74
== END 2020-02-19 18:32 | disposition home or self-care (01) ==
LOC: ER 11:12
DX: H10.32 Unspecified acute conjunctivitis, left eye (principal); H57.12 Ocular pain, left eye; H53.8 Other visual disturbances
CPT/HCPCS: 99283